=== PATIENT | female | born 1980 | race Caucasian/White ===

== ENCOUNTER 2020-06-16 10:00 | Emergency (ER) | payer MEDICAID ==
[~2020-06-16] VITALS: Ht 170.2 cm; Wt 68.0 kg
[2020-06-16] MEDS ORDERED: CEFTRIAXONE 500 MG VIAL IM ONE (10:30)
[2020-06-16] MEDS ORDERED: DOXYCYCLINE HYCLATE (100 MG) 100 MG TABLET PO ONE (10:30)
[2020-06-16] MEDS ORDERED: LEVETIRACETAM (500MG) 500 MG in IV NS 0.9% 100 ML IV ONE (10:30)
--- NOTE | 2020-06-16 10:30 | NUR ---
[id number], FROM STREET, C/O WEAKNESS X1 WEEK, DENIES DRUGS OR ALCOHOL USE. ON ROOM AIR, BREATHING EVENLY AND UNLABORED. CONNECTED TO THE MONITOR AND PULSE OX. KEPT COMFORTABLE, WILL CONTINUE TO MONITOR ACCORDINGLY.
--- NOTE | 2020-06-16 10:46 | NUR ---
patient refused blood draw and IV line access, notified and made aware.
[2020-06-16] MEDS ORDERED: CEFTRIAXONE 500 MG VIAL ONE (10:47)
[2020-06-16] MEDS ORDERED: DOXYCYCLINE HYCLATE (100 MG) 100 MG TABLET ONE (10:47)
[2020-06-16] MEDS ORDERED: LEVETIRACETAM (250 MG) 250 MG TABLET PO ONE ×2 (10:47→11:00)
[2020-06-16] MEDS ORDERED: LIDOCAINE /MPF 1% VIAL 5 ML VIAL ONE (10:48)
[2020-06-16] MEDS ORDERED: DOXY100C2 PO (10:56)
[2020-06-16] MEDS ORDERED: LEVE500T9 PO (10:56)
[2020-06-16 11:16] VITALS: BP 124/82
--- NOTE | 2020-06-16 11:16 | NUR ---
Patient discharged to home in stable condition. Written and verbal after care instructions given. Patient verbalizes understanding of instruction.IV removed. Catheter intact and site benign. Pressure and 4x4 applied to site. No bleeding noted.
--- NOTE | 2020-06-16 11:17 | NUR ---
Patient does not wish to proceed with medical care recommended by Dr. Murcia. Patient given information related to possible complications, up to and including , which could occur as a result of leaving the hospital at this time. Patient verbalizes understanding of risks involved due to leaving against medical advice. Patient has signed AMA form.
== END 2020-06-16 11:16 | disposition home or self-care (01) ==
LOC: ER 10:12
DX: R56.9 Unspecified convulsions (principal); Z88.1 Allergy status to other antibiotic agents; Z59.0 Homelessness; Z79.899 Other long term (current) drug therapy
CPT/HCPCS: 93005; 96372; 99283; J0696; J3490; J1953; J7030